=== PATIENT | male | born 2000 | race Caucasian/White ===

== ENCOUNTER 2024-05-24 07:47 | Emergency (ER) | payer OTHER, SELFPAY ==
[2024-05-24 07:55] VITALS: BP 134/84; PULSE 88; RESP 14; TEMP 36.3; O2SAT 97; BMI 24.4
--- NOTE | 2024-05-24 08:12 | ED_ITS ---
HPI - Eye Problem General Chief complaint: Eye Problems Stated complaint: Chemical burn in eyes Time Seen by Provider: 05/24/24 08:01 History of Present Illness HPI Narrative: Is a healthy 23-year-old gentleman who is up-to-date on his tetanus shot who was spring automotive primer 2 days ago in small amount got in his left eye. He has local irritation as well as upper eyelid swelling. He is mattering and discharge. His no changes visual acuity. He has minimal pain with extraocular movement. No or minimal symptoms in the right eye. Patient has been using eye irrigation with limited success. No other complaints or concerns. No other exposure. Related Data Home Medications ?Medication ?Instructions ?Recorded ?Confirmed No Known Home Medications 05/24/24 05/24/24 Allergies Allergy/AdvReac Type Severity Reaction Status Date / Time No Known Drug Allergies Allergy Verified 05/24/24 07:57 Review of Systems Status of ROS: Reports: 10 or more systems reviewed and unremarkable except as noted in History and below PFSH PFS Social History Smoking Status: Current every day smoker Do you use any of these nicotine containing products: Vaping Products Second hand tobacco smoke exposure: No How often do you have a drink containing alcohol: 2-4 times a month AUDIT-C Alcohol total score: 2 Non-prescribed substance use: denies use Exam Narrative: Exam Narrative: EXAM GENERAL: Patient appears comfortable and well. EYES: Swelling and induration of the left eye noted minimal mattering or discharge. LYMPH: No supraclavicular or cervical lymphadenopathy. SKIN: Visible skin seen during exam normal or with benign process only. EXT: No dependent lower extremity pedal edema. HEART: Regular rate and rhythm with no murmurs, rubs, or gallops. LUNGS: Clear to auscultation bilaterally with no crackles or wheezes. ABD: Soft, non tender, non distended. PSYCH: Good eye contact, speech is not pressured. Const: Vital Signs, click to edit/add: Vital Signs - 24 hr 05/24/24 07:55 Temperature 97.3 F L Pulse Rate [Pulse Oximeter] 88 Respiratory Rate 14 Blood Pressure [Ri ght Upper Arm] 134/84 Pulse Oximetry 97 Oxygen Delivery Me thod Room Air Course Course ED Course: I was sterilely treated with tetracaine drops with resolution of his symptoms. I did irrigate his left eye. I do not see any foreign body. He does have significant induration of the upper eyelid. Vital Signs Vital signs: Initial Vital Signs Temperature 97.3 F L 05/24/24 07:55 Temperature Source Temporal Artery Scan 05/24/24 07:55 Pulse Rate 88 05/24/24 07:55 Pulse Rhythm Regular 05/24/24 07:55 Respiratory Rate 14 05/24/24 07:55 Blood Pressure 134/84 05/24/24 07:55 Blood Pressure Mean 100 05/24/24 07:55 Blood Pressure Position Sitting 05/24/24 07:55 Pulse Oximetry 97 05/24/24 07:55 Oxygen Delivery Method Room Air 05/24/24 07:55 Vital Signs Temperature 97.3 F L 05/24/24 07:55 Pulse Rate 88 05/24/24 07:55 Respiratory Rate 14 05/24/24 07:55 Blood Pressure 134/84 05/24/24 07:55 Pulse Oximetry 97 05/24/24 07:55 Oxygen Delivery Method Room Air 05/24/24 07:55 Temperature 97.3 F L 05/24/24 07:55 Pulse Rate 88 05/24/24 07:55 Respiratory Rate 14 05/24/24 07:55 Blood Pressure 134/84 05/24/24 07:55 Pulse Oximetry 97 05/24/24 07:55 Oxygen Delivery Method Room Air 05/24/24 07:55 MDM - Eye Problem Medical Records Medical records narrative: Patient presents with swelling and discomfort of the left eye following exposure to paint primer. He is treated with tetracaine and I irrigation with improvement of his symptoms. I did place him on gentamicin eyedrops and recommended close outpatient follow-up with optometry. I do not see any foreign body I do not CO corneal abrasion I do not see a ruptured globe I do not see any difficulties with the lens or globe of the eye. Discharge Plan Discharge Clinical Impression: Conjunctivitis Patient Disposition: Home, Self-Care Condition: Stable Instructions: Conjunctivitis (ED) Additional Instructions: Gentamicin as discussed 2 drops left eye every 4 hours. Report any change in symptoms. Tylenol Motrin Follow-up with [facility] if not improved by tomorrow. Activity Level: No Restrictions Discharge Diet: Regular Prescriptions: No Action No Known Home Medications Follow Up/Referrals: Provider,Not a Local [Primary Care Provider] - Stand Alone Forms: [employer] Info Instructions
== END 2024-05-24 08:42 | disposition home or self-care (01) ==
PROVIDERS: Emergency Provider Internal Medicine
DX: H10.022 Other mucopurulent conjunctivitis, left eye (principal)
CPT/HCPCS: 99283; A9270

== ENCOUNTER 2025-06-20 10:00 | Outpatient (CLI) | payer OTHER, SELFPAY | END 2025-06-20 10:01 | disposition home or self-care (01) | LOC: NFLDREF 06-25 12:54 | PROVIDERS: Visit Provider Physician Assistant | DX: Z31.41 Encounter for fertility testing (principal) | CPT/HCPCS: 89322 ==